=== PATIENT | female | born 1960 | race Caucasian/White ===

== ENCOUNTER 2016-10-15 21:18 | Inpatient (IN) ==
[2016-10-15] MEDS ORDERED: cloNIDine HCl 0.1 MG TABLET PO ONE (21:49)
[2016-10-15] MEDS: 0.9 % Sodium Chloride 1,000 ML IVC ONE ×2 (22:17→23:59)
[2016-10-15 22:27] LABS: Basophils % 0.2 %; Eosinophils % 0.1 %; Hematocrit 45.5 % (35.3-44.9); Hemoglobin 14.7 g/dL (11.5-15.4); Immature Platelets 3.1 % (1.1-6.1); Lymphocytes # 0.4 K/mcL (0.6-4.6); Mean Corpuscular HGB Conc 32.3 g/dL (31.6-35.5); Mean Corpuscular Hemoglobin 29.3 pg (28.0-33.3); Mean Corpuscular Volume 90.8 fL (83.0-100.0); Mean Platelet Volume 9.9 fL (9.4-12.4); Monocytes # 0.1 K/mcL (0.0-1.3); Neutrophils # 8.5 K/mcL (1.6-8.9); Platelet Count 245 K/mcL (140-400); Red Blood Count 5.01 M/mcL (3.82-4.97); Red Cell Distribution Width 13.7 % (11.5-14.5); Segmented Neutrophils % 93.7 %
[2016-10-15 22:40] LABS: BUN/Creatinine Ratio 17 (6-26); Blood Urea Nitrogen 15 mg/dL (7-20); Calcium 9.3 mg/dL (8.6-10.8); Carbon Dioxide 22 mEq/L (19-29); Chloride 101 mEq/L (98-109); Glucose 95 mg/dL (70-99); Osmolality,Calculated 283 (280-300); Potassium 3.1 mEq/L (3.5-4.5); Sodium 136 mEq/L (136-145); eGFR For African Americans > 60 (> 60); eGFR For Non-African Americans > 60 (> 60)
--- NOTE | 2016-10-15 23:19 | Emergency Department Note ---
Disposition Clinical Impression: Elevated troponin I level, Weakness, Heroin withdrawal Disposition: Admitted As Inpatient Condition: Fair Time of Disposition: 23:49 Weakness HPI - General Chief complaint: ED Weakness Stated complaint: weakness/heroin w/d Time Seen by Provider: 10/15/16 21:30 Source: patient, EMS Mode of arrival: EMS Limitations: no limitations Nursing Notes Reviewed: Yes Vital Signs Reviewed: Yes - History of Present Illness HPI Narrative: Patient is a 56-year-old female who presents to [facility] ED with chief complaint of back pain. States her symptoms have been normal ongoing for the last several days. She also is a heroin abuser who uses daily. States she did not use enough this morning. She is now having worsening back pain along with generalized weakness and nausea, diarrhea which started several hours ago. Pt Subjective Complaint: generalized weakness/fatigue Onset (ago): day(s) Location: generalized Pain Scale: 0 Improves with: none Worsens with: none Associated symptoms: Reports: denies other symptoms, fever/chills. Denies: chest pain, nausea/vomiting, shortness of breath - Related Data Home Medications Medication Instructions Recorded Confirmed Albuterol Sulfate [Proair HFA] 1 puff IH PRN PRN 10/08/14 10/08/14 Aspirin Enteric Coated [Aspirin EC] 81 mg PO DAILY 10/08/14 10/08/14 Buprenorphine HCl/Naloxone HCl 1 each SL 10/08/14 10/08/14 [Suboxone 8 mg-2 mg Sl Film] Gabapentin [Neurontin] 1,600 mg PO BID 10/08/14 10/08/14 Naproxen Sodium [Aleve] 220 mg PO BID 10/08/14 10/08/14 Previous Rx's Medication Instructions Recorded Cyclobenzaprine [Flexeril] 5 mg PO TID #14 tablet 10/08/14 Naproxen [Naprosyn] 500 mg PO BID #10 tablet 10/08/14 Amoxicillin 875 mg PO BID #14 tablet 11/20/14 Sulfamethoxazole/Trimeth DS 1 each PO BID #14 tablet 11/20/14 [Bactrim DS] Doxycycline 100 mg PO BID #14 capsule 07/28/15 Fluconazole [Diflucan] 150 mg PO ONCE #2 tablet 07/28/15 Hydrocodone/Acetaminophen [[place] 1 tab PO Q6H PRN #6 tab 07/28/15 5-325 Tablet] Clindamycin HCl [Cleocin HCl] 300 mg PO QID #40 capsule 10/23/15 Mupirocin [Bactroban Oint] 22 gm TP BID #22 tube 10/23/15 Sulfamethoxazole/Trimeth DS 1 each PO BID 10 Days 05/16/16 [Bactrim DS] cephALEXin [Keflex] 500 mg PO QID 10 Days 05/16/16 Allergies Allergy/AdvReac Type Severity Reaction Status Date / Time amlodipine [From Lotrel] Allergy Joint Pain Verified 05/16/16 16:32 benazepril [From Lotrel] Allergy Joint Pain Verified 05/16/16 16:32 All systems ED: reviewed and negative except as stated. Past Medical History - Past Medical History Attestation: Yes The following information was validated with the patient. 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 history: Reports: other - Social History Smoking Status: Current every day smoker Smokeless Tobacco Status: No Alcohol use: Reports: unknown Drug use: Reports: opiates, IV Drug Use Physical Exam - General Limitations: no limitations General appearance: alert, in no apparent distress - Head Head exam: atraumatic, normocephalic, normal inspection - Eye Eye exam: Present: normal appearance, EOMI - ENT ENT exam: normal exam, normal oropharynx, mucous membranes moist - Neck Neck exam: Present: normal inspection, full ROM, trachea midline - Chest Chest inspection: Present: normal inspection, symmetric chest wall rise - Respiratory Respiratory exam: Present: wheezes (L) - Cardiovascular Cardiovascular exam: Present: normal rhythm, tachycardia - Abdominal Exam Abdominal exam: Present: soft, Non-Tender. Absent: tenderness, distention, guarding, rebound, rigidity - Extremities Exam Extremities exam: Present: normal inspection, full ROM. Absent: tenderness, pedal edema - Back Exam Back exam: Present: normal inspection, full ROM, tenderness, paraspinal tenderness - Neurological Exam Neurological exam: Present: alert - Psychiatric Psychiatric exam: Present: normal affect, normal mood - Skin Skin exam: Present: warm, dry, intact, normal color Course Course Narrative: Patient seen and examined. Complaining of back pain as well as heroin withdrawal. Complaining of subjective fevers and chills. Her back pain is purely lateral and reproducible with palpation. I do not suspect an epidural spinal abscess. Patient has not had any recent injury to her back. We will hold off on any imaging at this time since she has had prior imaging. Due to her generalized weakness, we will get some lab work as well as a troponin and EKG. Patient does have some wheezing on the left lungs. We will get a DuoNeb treatment as well as chest x-ray. - Reevaluation(s) Reevaluation #1: Lab work shows elevated troponin at 0.05. Suspect this is likely demand ischemia from his tachycardia. However she has not had any cardiac workup here before and with her generalized weakness, cannot rule out ACS. I spoke with hospitalist who would also like some blood cultures. These have been added. Patient has been accepted for admission by hospitalist Dr. Baum. Time: 23:45 Vital Signs Temperature 99.2 F 10/15/16 21:19 Pulse Rate 108 10/15/16 21:19 Respiratory Rate 22 10/15/16 21:19 Blood Pressure 135/78 10/15/16 21:19 O2 Sat by Pulse Oximetry 96 10/15/16 21:19 Temperature 98.5 F 10/16/16 00:19 Pulse Rate 104 10/16/16 00:19 Respiratory Rate 22 10/16/16 00:19 Blood Pressure 141/81 10/16/16 00:19 O2 Sat by Pulse Oximetry 93 10/16/16 00:19 Oxygen Delivery Oxygen Delivery Room Air Weakness - Medical Records Medical records reviewed: Yes I reviewed the patient's medical records. - Lab Data Lab results reviewed: Yes I reviewed the patient's lab results. Result diagrams: 10/15/16 22:20 10/15/16 22:20 - Radiology Data Radiology results reviewed: Yes I reviewed the patient's radiology results. - EKG Data EKG attestation: Yes I reviewed and interpreted this EKG. EKG results narrative: EKG done at 2154 shows sinus tachycardia with a rate of [address] elevation. Mild ST depression in V4 through V6. Normal axis. EKG appears unchanged from prior EKG done 08/05/2012. Attestation Statement - Attestation Attestation: I, Haider Couch, examined this patient and my medical decision-making was reviewed with the GLOBAL LOGISTICS ANALYST/PA/Advanced Practice Nurse/Resident Physician. I agree with the documented findings, disposition and treatment plan as described except to the extent set forth below. 56-year-old female presents with concerns of weakness, fatigue, generalized malaise. Patient states he uses heroin IV daily. She states that she had used a smaller amount of heroin than normal today. Patient states she has had similar symptoms to her presentation today with heroin withdrawal. Patient states she is unable to tolerate her symptoms at home. Denies fever, shortness of breath, diarrhea. EKG shows sinus tachycardia with a rate of 106 without evidence of obvious STEMI or ischemia. Patient had an elevated troponin on her laboratory evaluation. She will be admitted to the hospital for further care and evaluation of her elevated troponin and generalized weakness.
[2016-10-15] MEDS ORDERED: Acetaminophen 325 MG TABLET PO ONE (23:40)
[2016-10-15] MEDS ORDERED: Ipratropium/Albuterol Neb 3 ML IH ONE (23:42)
[2016-10-16] MEDS ORDERED: Naloxone 0.4 MG/ML INJ IVP PRN (00:30)
[2016-10-16] MEDS ORDERED: *HR* Buprenorphine HCl 2 MG SUBLINGUAL TABLET SL SCH (00:30)
--- NOTE | 2016-10-16 00:41 | Internal Med History&Physical ---
Date of Encounter: 10/16/16 Time of Encounter: 00:38 Assessment and Plan (1) Lower back pain Current visit: Yes Status: Acute given hx of IVDU and hx of surgery , will order CT pelvis/L-spine with contrast to r/o infection. ESR,CRP, blood cx ordered. IVF. Hold antibiotics for now since she remains stable - pending above test for decision making Qualifiers: Chronicity: acute Back pain laterality: left Qualified Code(s): M54.42 - Lumbago with sciatica, left side (2) Heroin withdrawal Current visit: Yes Status: Acute consult social work. She wishes to be on suboxone. Will start subutex in house given active withdrawal (3) Elevated troponin I level Current visit: Yes Status: Acute suspect demand, trend Internal Medicine - H&P: HPI Chief complaint: Back pain History of present illness: Ms. Gates is a 56 year old female who is an active IVDU who presents with acute left sided lower back pain. She mentions that she has a hx of chronic back pain and s/p back surgery in the area many years ago and had been on prescriptions opiates prior. She has since transitioned to IVDU for the last 8 years. Uses approx 1 g heroin a day. Last used yesterday. Active IVDU. Reported severe, local, sharp, 10/10 pain along her left back. Associated with fever, chills - subjective. Denies bladder/bowel or red flag symptoms Past Med Surg Social Fam HX - Past Medical History Medical history: asthma, hepatitis, hypertension - Past Surgical History Surgical History: appendectomy, , other - Social History Smoking Status: Current every day smoker Smokeless Tobacco Status: No Alcohol use: unknown Drug use: opiates, IV Drug Use - Additional Family History Additional family history: HTN Internal Medicine - H&P: Meds Albuterol Sulfate [Proair HFA] 1 puff IH PRN PRN 10/08/14 [History] Aspirin Enteric Coated [Aspirin EC] 81 mg PO DAILY 10/08/14 [History] Buprenorphine HCl/Naloxone HCl [Suboxone 8 mg-2 mg Sl Film] 1 each SL 10/08/14 [ History] Cyclobenzaprine [Flexeril] 5 mg PO TID #14 tablet 10/08/14 [Rx] Gabapentin [Neurontin] 1,600 mg PO BID 10/08/14 [History] Naproxen Sodium [Aleve] 220 mg PO BID 10/08/14 [History] Naproxen [Naprosyn] 500 mg PO BID #10 tablet 10/08/14 [Rx] Amoxicillin 875 mg PO BID #14 tablet 11/20/14 [Rx] Sulfamethoxazole/Trimeth DS [Bactrim DS] 1 each PO BID #14 tablet 11/20/14 [Rx] Doxycycline 100 mg PO BID #14 capsule 07/28/15 [Rx] Fluconazole [Diflucan] 150 mg PO ONCE #2 tablet 07/28/15 [Rx] Hydrocodone/Acetaminophen [[place] 5-325 Tablet] 1 tab PO Q6H PRN #6 tab 07/28/15 [Rx] Clindamycin HCl [Cleocin HCl] 300 mg PO QID #40 capsule 10/23/15 [Rx] Mupirocin [Bactroban Oint] 22 gm TP BID #22 tube 10/23/15 [Rx] Sulfamethoxazole/Trimeth DS [Bactrim DS] 1 each PO BID 10 Days 05/16/16 [Rx] cephALEXin [Keflex] 500 mg PO QID 10 Days 05/16/16 [Rx] Allergies amlodipine [From Lotrel] Allergy (Verified 05/16/16 16:32) Joint Pain benazepril [From Lotrel] Allergy (Verified 05/16/16 16:32) Joint Pain All Systems PM: A 10-system review of systems was performed and is negative for pertinent findings except as documented above in the HPI. Review of systems: ROS 14 point review of systems reviewed as best as possible given presentation. Pertinent positive or negative as per HPI or otherwise reviewed as negative - Constitutional Vitals: Temp Pulse Resp BP Pulse Ox 98.5 F 104 22 141/81 93 10/16/16 00:19 10/16/16 00:19 10/16/16 00:19 10/16/16 00:19 10/16/16 00:19 Exam: General - AAO x 3 Psych - diaphoretic, agitated, in pain Eyes - ROCIO. Eye lids intact. No scleral icterus ENT - Oral mucosa pink, dentition intact. External ear clear/dry/intact. No thyromegaly Lymphatics - No cervical/inguinal lympadenopathy Neuro - No gross peripheral or central neuro deficits with intact CN 2-12 exam Heart - Sinus. RRR. S1 and S2 present. No added HS/murmurs appreciated. No elevated JVD appreciated. No calf swellings/erythema Lung - Adequate air entry b/l, No crackes/wheezes appreciated GI - Soft, non-tender. No hepatosplenomegaly/ascites. BS+ - No CVA/suprapubic tenderness or palpable bladder distension Skin - at least present MSK - low back lumbar and sacral back pain on palpation of left Internal Med - H&P Results - Labs CBC & Chem 7: 10/15/16 22:20 10/15/16 22:20
[2016-10-16] MEDS ORDERED: cloNIDine HCl 0.1 MG TABLET PO PRN (00:50)
[2016-10-16] MEDS: 0.9 % Sodium Chloride 1,000 ML IVC SCH ×2 (01:55→10:27)
[2016-10-16 04:20] LABS: Mean Platelet Volume 10.4 fL (9.4-12.4); Red Cell Distribution Width 13.8 % (11.5-14.5)
[2016-10-16 04:21] LABS: Hematocrit 41.7 % (35.3-44.9); Hemoglobin 13.4 g/dL (11.5-15.4); Mean Corpuscular HGB Conc 32.1 g/dL (31.6-35.5); Mean Corpuscular Volume 90.3 fL (83.0-100.0); Platelet Count 235 K/mcL (140-400); Red Blood Count 4.62 M/mcL (3.82-4.97)
[2016-10-16] MEDS: *HR* Buprenorphine HCl 2 MG SUBLINGUAL TABLET SL SCH ×2 (04:25→21:39)
[2016-10-16 04:39] LABS: Alanine Aminotransferase 20 Units/L (0-55); Albumin 3.1 g/dL (3.5-5.0); Albumin/Globulin Ratio 0.6 (1.1-2.2); Alkaline Phosphatase 125 Units/L (38-126); Aspartate Amino Transferase 33 Units/L (5-34); BUN/Creatinine Ratio 16 (6-26); Bilirubin,Total 0.7 mg/dL (0.2-1.2); Blood Urea Nitrogen 14 mg/dL (7-20); Calcium 9.2 mg/dL (8.6-10.8); Carbon Dioxide 24 mEq/L (19-29); Chloride 104 mEq/L (98-109); Globulin 5.1 g/dL (2.4-3.5); Glucose 98 mg/dL (70-99); Osmolality,Calculated 286 (280-300); Sodium 138 mEq/L (136-145); Total Protein 8.2 g/dL (6.0-8.3); eGFR For African Americans > 60 (> 60); eGFR For Non-African Americans > 60 (> 60)
[2016-10-16 04:54] LABS: C-Reactive Protein 33 mg/L (Less than 5)
[2016-10-16] MEDS: *HR* Enoxaparin 40 MG/0.4 ML SYRINGE SQ SCH (05:59)
[2016-10-16] MEDS: Ibuprofen 400 MG TABLET PO PRN ×3 (06:00→18:05)
[2016-10-16] MEDS: Potassium Chloride Elixir 20 MEQ/15 ML UDC PO SCH ×2 (10:26→15:55)
[2016-10-16] MEDS: *HR* Promethazine 25 MG/ML VIAL IVP PRN (10:49)
--- NOTE | 2016-10-16 11:32 | Event Note ---
Date of Encounter: 10/16/16 Time of Encounter: 11:32 56 year old female with h/o- HTN, COPD, IVDU, medical noncompliance was admitted with acute on chronic low back pain, radiating to her left back. Patient seen and examined at bedside; reports severe back pain, nausea and vomiting; no abdominal pain or urinary complaints, diarrhea; Awake, alert and oriented*3 Chest- S1, S2 heard. Lungs with bibasal rhonchi and coarse breath sounds B/L Back- lumbar spinal old surgical scar with a small dry scab at the proximal end ; point tenderness on upper lumbar vertebrae; no CVA Lumbar back pain- need to r/o- vertebral osteomyelitis or disciitis given her IVDU; continue pain control and supportive care; CT L-Spine and pelvis shows no evidence of infection; possible diverticulitis at the junction of descending colon and sigmoid colon. F/up blood cultures. Start IV Ciprofloxacin and Flagyl. COPD- patient noted to be having rhonchi. Start bronchodilators and supplemental O2 as needed; Opiate withdrawal- responding well to Subutex; continue the same with supportive symptomatic therapy;
[2016-10-16] MEDS: Ipratropium/Albuterol Neb 3 ML IH SCH ×4 (11:45→23:22)
[2016-10-16 12:36] LABS: Bilirubin,Urine Small (Negative); Blood,Urine Negative (Negative); Clarity,Urine Cloudy (Clear); Color,Urine Dark Yellow (Yellow); Glucose,Urine (UA) Normal (Normal); Ketones,Urine Negative (Negative); Leukocyte Esterase,Urine Small (Negative); Nitrite,Urine Negative (Negative); Protein,Urine Trace mg/dL (Neg-Trace); Specific Gravity,Urine 1.027 (1.010-1.025); Urobilinogen,Urine Normal (Normal)
[2016-10-16 12:39] LABS: Hyaline Casts,Urine Few per lpf (None-Few); RBC,Urine 0-3 per hpf (0-3)
[2016-10-16 12:52] LABS: Bacteria,Urine Few per hpf (None-Few); Mucus,Urine Many (Few); Squamous Epithelial Cell,Urine Few per lpf (None-Few)
[2016-10-16] MEDS: MetroNIDAZOLE 500 MG/100 ML 500 MG/100 ML BAG IVPB SCH (15:54)
--- NOTE | 2016-10-16 17:50 | Electrocardiograph Report ---
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
[2016-10-16] MEDS: Nicotine 21 MG PATCH.TD24 TD SCH (18:31)
[2016-10-16] MEDS: Acetaminophen 325 MG TABLET PO PRN (21:39)
[2016-10-16] MEDS: Ondansetron 4 MG/2 ML VIAL IVP PRN (21:40)
[2016-10-17] MEDS: 0.9 % Sodium Chloride 1,000 ML IVC SCH (00:24)
[2016-10-17] MEDS: MetroNIDAZOLE 500 MG/100 ML 500 MG/100 ML BAG IVPB SCH ×4 (00:26→23:53)
[2016-10-17] MEDS: Ibuprofen 400 MG TABLET PO PRN ×3 (00:26→19:51)
[2016-10-17] MEDS: Ipratropium/Albuterol Neb 3 ML IH SCH ×5 (04:46→19:52)
[2016-10-17] MEDS: *HR* Enoxaparin 40 MG/0.4 ML SYRINGE SQ SCH (05:05)
[2016-10-17] MEDS: *HR* Promethazine 25 MG/ML VIAL IVP PRN ×2 (05:05→18:21)
[2016-10-17] MEDS: Acetaminophen 325 MG TABLET PO PRN ×3 (05:05→22:39)
[2016-10-17 05:23] LABS: BUN/Creatinine Ratio 23 (6-26); Blood Urea Nitrogen 17 mg/dL (7-20); Calcium 8.5 mg/dL (8.6-10.8); Carbon Dioxide 22 mEq/L (19-29); Chloride 109 mEq/L (98-109); Glucose 81 mg/dL (70-99); Magnesium 1.9 mg/dL (1.6-2.6); Osmolality,Calculated 289 (280-300); Potassium 3.1 mEq/L (3.5-4.5); Sodium 139 mEq/L (136-145); eGFR For African Americans > 60 (> 60); eGFR For Non-African Americans > 60 (> 60)
[2016-10-17 05:32] LABS: Basophils % 0.2 %; Eosinophils # 0.1 K/mcL (0.0-0.6); Eosinophils % 0.2 %; Hematocrit 35.6 % (35.3-44.9); Immature Granulocytes % 0.5 % (0-4); Lymphocytes # 3.6 K/mcL (0.6-4.6); Mean Corpuscular HGB Conc 32.6 g/dL (31.6-35.5); Mean Corpuscular Hemoglobin 29.6 pg (28.0-33.3); Mean Corpuscular Volume 90.8 fL (83.0-100.0); Mean Platelet Volume 11.3 fL (9.4-12.4); Monocytes # 1.8 K/mcL (0.0-1.3); Monocytes % 9.1 %; Neutrophils # 14.5 K/mcL (1.6-8.9); Platelet Count 214 K/mcL (140-400); Red Blood Count 3.92 M/mcL (3.82-4.97); Red Cell Distribution Width 14.2 % (11.5-14.5)
[2016-10-17 05:34] LABS: Hemoglobin 11.6 g/dL (11.5-15.4)
[2016-10-17] MEDS: *HR* Buprenorphine HCl 2 MG SUBLINGUAL TABLET SL SCH (08:10)
[2016-10-17] MEDS: Nicotine 21 MG PATCH.TD24 TD SCH (08:22)
--- NOTE | 2016-10-17 10:05 | Internal Med Progress Note ---
Date of Encounter: 10/17/16 Time of Encounter: 10:00 - Assessment and plan (1) Lower back pain Current Visit: Yes Status: Acute Assessment and plan: Patient has acute on chronic left-sided low back pain. Uncertain etiology. CT lumbar spine showed no evidence of osteomyelitis/discitis and she is at higher risk given her IV drug use. 2 sets of initial blood cultures remain negative. Suspicion for spinal seeding is low at this time. Continue pain control with when necessary Tylenol and ibuprofen. Avoid opiates due to IV drug use. Qualifiers: Chronicity: acute Back pain laterality: left Sciatica presence: without sciatica Qualified Code(s): M54.5 - Low back pain (2) Elevated troponin I level Current Visit: Yes Status: Resolved Assessment and plan: Likely demand ischemia due to tachycardia and underlying infection. Serum troponins currently normal. No history of chest pain. (3) Diverticulitis Current Visit: Yes Status: Acute Assessment and plan: Patient presented with leukocytosis and tachycardia. Workup for infection so far negative except the finding of mild diverticulitis at the junction of descending and sigmoid colon on CT pelvis. Blood cultures negative. Continue IV ciprofloxacin and Flagyl. Supportive care. Pain control. Qualifiers: Diverticulitis site: large intestine Diverticulitis bleeding: without bleeding Diverticulitis complication: without perforation or abscess Qualified Code(s): K57.32 - Diverticulitis of large intestine without perforation or abscess without bleeding (4) Tobacco abuse Current Visit: Yes Status: Chronic Assessment and plan: Continue nicotine transdermal patch. (5) Essential hypertension Current Visit: Yes Status: Chronic Assessment and plan: Patient is non-compliant with outpatient regimen. Restart Lisinopril as her BP is noted to be high; continue to monitor closely; (6) COPD (chronic obstructive pulmonary disease) Current Visit: Yes Status: Chronic Assessment and plan: likely has undiagnosed COPD due to her smoking history. Continue bronchodilators and supplemental O2 as needed; Qualifiers: COPD type: unspecified COPD Qualified Code(s): J44.9 - Chronic obstructive pulmonary disease, unspecified (7) IVDU (intravenous drug user) Current Visit: Yes Status: Chronic Assessment and plan: No signs of withdrawal at this time. Continue supportive care with when necessary clonidine, Bentyl and Zofran. Patient has been started on Subutex, continue for now. environmental services floor tech consult. - Subjective Interval history: Feels better; reports low back pain, but improving; tolerates oral diet. No fever and improved heart rate; no abdominal pain and improved diarrhea; - Constitutional Vitals: Temp Pulse Resp BP Pulse Ox 97.8 F 67 18 145/90 96 10/17/16 07:35 10/17/16 07:35 10/17/16 07:35 10/17/16 07:35 10/17/16 07:35 General appearance: Present: A&O X 3, answers questions appropriately - Respiratory Respiratory exam: Present: CTAB (B/L coarse breath sounds, improved rhonchi). Absent: accessory muscle use, rales, rhonchi, wheezes - Cardiovascular Cardiovascular exam: Present: RRR, +S1, +S2. Absent: diastolic murmur, gallop, rubs, systolic murmur - GI/Abdominal GI/Abdominal exam: Present: normal bowel sounds, soft, no peritoneal signs. Absent: distended, tenderness - Neurological Exam Neurological exam: Present: CN II-XII intact, oriented X3, no focal deficits. Absent: pronater drift, facial droop, speech deficit Internal Medicine: Result - Labs CBC & Chem 7: 10/17/16 03:56 10/17/16 03:56 Labs: Short CBC 10/17/16 Range/Units 03:56 WBC 20.1 H (4.3-11.1) K/mcL Hgb 11.6 D (11.5-15.4) g/dL Hct 35.6 (35.3-44.9) % Plt Count 214 (140-400) K/mcL Neutrophils # 14.5 H (1.6-8.9) K/mcL BMP 10/17/16 03:56 Sodium 139 Potassium 3.1 L Chloride 109 Carbon Dioxide 22 BUN 17 Creatinine 0.73 Glucose 81 Calcium 8.5 L Cardiac Enzymes 10/16/16 10/16/16 Range/Units 10:23 16:21 Troponin I 0.03 0.00 (0-0.03) ng/mL Urine 10/16/16 Range/Units 12:00 Urine Color Dark Yellow (Yellow) Urine Clarity Cloudy A (Clear) Urine pH 6.0 (5.0-8.0) pH Units Ur Specific [place] 1.027 H (1.010-1.025) Urine Protein Trace (Neg-Trace) mg/dL Urine Glucose (UA) Normal (Normal) mg/dL - Impressions Impressions Lumbar Spine CT 10/16/16 09:20 IMPRESSION: 1. No acute process. No evidence of discitis/osteomyelitis 2. Postoperative and degenerative changes as described D/ / Arben Gardner MD / Arben Gardner MD Interpreting Provider: Arben Gardner MD Pelvis CT 10/16/16 09:20 IMPRESSION: Mild colonic diverticulosis with suspicion for acute diverticulitis near the junction of the descending and sigmoid colon. D/ / Farhan Velasco MD / Farhan Velasco MD Interpreting Provider: Farhan Velasco MD Consult Discharge Plan - Plan Referrals: NONE,PCP [Primary Care Provider] -
[2016-10-17] MEDS: Ondansetron 4 MG/2 ML VIAL IVP PRN (19:51)
[2016-10-18] MEDS: Ipratropium/Albuterol Neb 3 ML IH SCH ×7 (00:07→23:15)
[2016-10-18] MEDS: *HR* Promethazine 25 MG/ML VIAL IVP PRN ×3 (00:32→21:31)
[2016-10-18 05:00] LABS: Basophils % 0.3 %; Eosinophils # 0.1 K/mcL (0.0-0.6); Eosinophils % 0.7 %; Hematocrit 36.5 % (35.3-44.9); Hemoglobin 11.7 g/dL (11.5-15.4); Immature Granulocytes % 0.7 % (0-4); Lymphocytes # 2.9 K/mcL (0.6-4.6); Mean Corpuscular HGB Conc 32.1 g/dL (31.6-35.5); Mean Corpuscular Hemoglobin 29.5 pg (28.0-33.3); Mean Corpuscular Volume 91.9 fL (83.0-100.0); Mean Platelet Volume 10.6 fL (9.4-12.4); Monocytes # 0.8 K/mcL (0.0-1.3); Monocytes % 7.1 %; Neutrophils # 6.8 K/mcL (1.6-8.9); Red Blood Count 3.97 M/mcL (3.82-4.97); Red Cell Distribution Width 13.8 % (11.5-14.5); Segmented Neutrophils % 64.2 %
[2016-10-18 05:17] LABS: BUN/Creatinine Ratio 21 (6-26); Blood Urea Nitrogen 15 mg/dL (7-20); Calcium 8.7 mg/dL (8.6-10.8); Carbon Dioxide 20 mEq/L (19-29); Chloride 113 mEq/L (98-109); Glucose 85 mg/dL (70-99); Magnesium 1.7 mg/dL (1.6-2.6); Osmolality,Calculated 294 (280-300); Potassium 3.6 mEq/L (3.5-4.5); Sodium 142 mEq/L (136-145); eGFR For African Americans > 60 (> 60); eGFR For Non-African Americans > 60 (> 60)
[2016-10-18 05:31] LABS: Platelet Count 189 K/mcL (140-400)
[2016-10-18] MEDS: *HR* Enoxaparin 40 MG/0.4 ML SYRINGE SQ SCH (05:41)
[2016-10-18] MEDS: Ondansetron 4 MG/2 ML VIAL IVP PRN ×2 (05:41→15:39)
[2016-10-18] MEDS: Acetaminophen 325 MG TABLET PO PRN ×3 (05:45→22:48)
[2016-10-18] MEDS: Nicotine 21 MG PATCH.TD24 TD SCH (08:33)
[2016-10-18] MEDS: MetroNIDAZOLE 500 MG/100 ML 500 MG/100 ML BAG IVPB SCH ×2 (08:34→15:49)
[2016-10-18] MEDS: Ibuprofen 400 MG TABLET PO PRN ×3 (08:41→21:30)
[2016-10-18] MEDS: 0.9 % Sodium Chloride w KCl 20 MEQ/1,000 ML MLS IVC SCH (15:42)
[2016-10-18] MEDS ORDERED: CloNIDine Patch 0.3 MG PATCH (WEEKLY) TD SCH (19:00)
--- NOTE | 2016-10-18 19:00 | Internal Med Progress Note ---
Date of Encounter: 10/18/16 Time of Encounter: 18:54 - Assessment and plan (1) Heroin withdrawal Current Visit: Yes Status: Acute (2) Diverticulitis Current Visit: Yes Status: Acute Qualifiers: Diverticulitis site: large intestine Diverticulitis bleeding: without bleeding Diverticulitis complication: without perforation or abscess Qualified Code(s): K57.32 - Diverticulitis of large intestine without perforation or abscess without bleeding (3) Essential hypertension Current Visit: Yes Status: Chronic (4) Lower back pain Current Visit: Yes Status: Acute Qualifiers: Chronicity: acute Back pain laterality: left Sciatica presence: without sciatica Qualified Code(s): M54.5 - Low back pain (5) IVDU (intravenous drug user) Current Visit: Yes Status: Chronic (6) Tobacco abuse Current Visit: Yes Status: Chronic - Subjective Interval history: Ms. Gates is a 56 year old female who is an active IVDU who presents with acute left sided lower back pain. She mentions that she has a hx of chronic back pain and s/p back surgery in the area many years ago and had been on prescriptions opiates prior. She has since transitioned to IVDU for the last 8 years. Uses approx 1 g heroin a day. Last used yesterday. Active IVDU. Reported severe, local, sharp, 10/10 pain along her left back. Associated with fever, chills - subjective. Today it she is diaphoretic and has developed fine tremors. Her blood pressure is quite high. Problem list: #1 localized thoracolumbar pain patient high risk for developing osteomyelitis due to history of recent IV drug abuse with Heroin. Order MRI with contrast the right lumbar spine. Blood cultures pending. #2 sepsis question etiology/diverticulitis. Abdominal CT showed possible diverticulitis and she is on Cipro and Flagyl. White count has normalized therefore I will continue those. No diarrhea though. #3 narcotic withdrawal patient has active narcotic withdrawal. 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 Ready to quit. #5 hypertension/accelerated hypertension IV hydralazine when necessary lisinopril 5 - Constitutional Vitals: Temp Pulse Resp BP Pulse Ox 98.3 F 74 14 185/101 96 10/18/16 16:26 10/18/16 16:26 10/18/16 16:26 10/18/16 16:26 10/18/16 16:26 General appearance: Present: A&O X 3, answers questions appropriately - Head Head exam: Present: atraumatic, normocephalic - Eye Eye exam: Present: PERRL, conjuntiva pink, sclera anicteric Pupils: Present: PERRL Additional comments: Localized to the lumbar spine tenderness - Neck Neck exam general surgery: Present: supple, trachea midline. Absent: lymphadenopathy - Respiratory Respiratory exam: Present: CTAB. Absent: accessory muscle use, rales, rhonchi, wheezes - Cardiovascular Cardiovascular exam: Present: RRR, +S1, +S2. Absent: diastolic murmur, gallop, rubs, systolic murmur - GI/Abdominal GI/Abdominal exam: Present: normal bowel sounds, soft, no peritoneal signs. Absent: distended, tenderness - Extremities Exam Extremities exam: Present: warm, radial pulses palpable and symmetrical. Absent : calf tenderness, cyanotic, pedal edema - Neurological Exam Neurological exam: Present: CN II-XII intact, oriented X3, no focal deficits. Absent: pronater drift, facial droop, speech deficit Additional comments: Diaphoretic localize bilateral upper extremity tremor - Skin Skin exam: Present: dry, intact Internal Medicine: Result - Labs CBC & Chem 7: 10/18/16 04:48 10/18/16 04:48 Labs: Short CBC 10/18/16 Range/Units 04:48 WBC 10.6 (4.3-11.1) K/mcL Hgb 11.7 (11.5-15.4) g/dL Hct 36.5 (35.3-44.9) % Plt Count 189 (140-400) K/mcL Neutrophils # 6.8 (1.6-8.9) K/mcL BMP 10/18/16 04:48 Sodium 142 Potassium 3.6 Chloride 113 H Carbon Dioxide 20 BUN 15 Creatinine 0.70 Glucose 85 Calcium 8.7 Consult Discharge Plan - Plan Instructions: Chronic Obstructive Pulmonary Disease (DC), Cigarette Smoking and Your Health, 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
[2016-10-18] MEDS ORDERED: cloNIDine HCl 0.1 MG TABLET PO SCH (21:00)
[2016-10-19] MEDS: MetroNIDAZOLE 500 MG/100 ML 500 MG/100 ML BAG IVPB SCH ×2 (01:59→08:03)
[2016-10-19] MEDS: Ipratropium/Albuterol Neb 3 ML IH SCH ×6 (04:24→23:19)
[2016-10-19] MEDS: *HR* Enoxaparin 40 MG/0.4 ML SYRINGE SQ SCH (06:11)
[2016-10-19] MEDS: 0.9 % Sodium Chloride w KCl 20 MEQ/1,000 ML MLS IVC SCH ×2 (06:11→22:44)
[2016-10-19 07:12] LABS: Alanine Aminotransferase 18 Units/L (0-55); Albumin 2.9 g/dL (3.5-5.0); Albumin/Globulin Ratio 0.7 (1.1-2.2); Alkaline Phosphatase 100 Units/L (38-126); Aspartate Amino Transferase 38 Units/L (5-34); BUN/Creatinine Ratio 15 (6-26); Bilirubin,Total 0.3 mg/dL (0.2-1.2); Blood Urea Nitrogen 10 mg/dL (7-20); Calcium 8.7 mg/dL (8.6-10.8); Carbon Dioxide 24 mEq/L (19-29); Chloride 111 mEq/L (98-109); Globulin 4.3 g/dL (2.4-3.5); Glucose 82 mg/dL (70-99); Osmolality,Calculated 294 (280-300); Potassium 4.1 mEq/L (3.5-4.5); Sodium 143 mEq/L (136-145); Total Protein 7.2 g/dL (6.0-8.3); eGFR For African Americans > 60 (> 60); eGFR For Non-African Americans > 60 (> 60)
[2016-10-19] MEDS: Ibuprofen 400 MG TABLET PO PRN (08:02)
[2016-10-19] MEDS: Nicotine 21 MG PATCH.TD24 TD SCH (08:02)
[2016-10-19] MEDS: *HR* Promethazine 25 MG/ML VIAL IVP PRN ×2 (08:05→13:35)
--- NOTE | 2016-10-19 08:32 | Internal Med Progress Note ---
Date of Encounter: 10/19/16 Time of Encounter: 08:30 - Assessment and plan (1) Heroin withdrawal Current Visit: Yes Status: Acute (2) Diverticulitis Current Visit: Yes Status: Acute Qualifiers: Diverticulitis site: large intestine Diverticulitis bleeding: without bleeding Diverticulitis complication: without perforation or abscess Qualified Code(s): K57.32 - Diverticulitis of large intestine without perforation or abscess without bleeding (3) Essential hypertension Current Visit: Yes Status: Chronic (4) Lower back pain Current Visit: Yes Status: Acute Qualifiers: Chronicity: acute Back pain laterality: left Sciatica presence: without sciatica Qualified Code(s): M54.5 - Low back pain (5) IVDU (intravenous drug user) Current Visit: Yes Status: Chronic (6) Tobacco abuse Current Visit: Yes Status: Chronic - Subjective Interval history: Ms. Gates is a 56 year old female who is an active IVDU who presents with acute left sided lower back pain. She mentions that she has a hx of chronic back pain and s/p back surgery in the area many years ago and had been on prescriptions opiates prior. She has since transitioned to IVDU for the last 8 years. Uses approx 1 g heroin a day. Last used yesterday. Active IVDU. Reported severe, local, sharp, 10/10 pain along her left back. Associated with fever, chills - subjective. Today it she is diaphoretic and has developed fine tremors. Her blood pressure is quite high. Problem list: #1 localized thoracolumbar pain patient high risk for developing osteomyelitis due to history of recent IV drug abuse with Heroin. MRI LS/TS shows no bone infection/inflammation. Shows previous Laminectomy at L4-5/L5-S1 with hardware. No severe foramen narrowing. Below the level of conus there is spinal stenosis. #2 sepsis question etiology/diverticulitis. Abdominal CT showed possible diverticulitis and she is on Cipro and Flagyl. White count has normalized therefore I will continue those. No diarrhea though. #3 narcotic withdrawal patient has active narcotic withdrawal. IV fluid clonidine when necessary morphine and when necessary hydralazine she is on editing clerk #4 IV drug abuse/nicotine abuse counseling provided and social work consult/ will need rehabilitation upon discharge. Ready to quit. #5 hypertension/accelerated hypertension IV hydralazine when necessary, lisinopril 10 BID, Catapress 3 q week, Lopressor 25 twice a day added. - Constitutional Vitals: Temp Pulse Resp BP Pulse Ox 98.2 F 89 20 185/98 94 10/19/16 06:38 10/19/16 06:38 10/19/16 07:42 10/19/16 08:14 10/19/16 07:42 General appearance: Present: A&O X 3, answers questions appropriately Internal Medicine: Result - Labs CBC & Chem 7: 10/19/16 07:22 10/19/16 05:12 Labs: BMP 10/19/16 05:12 Sodium 143 Potassium 4.1 Chloride 111 H Carbon Dioxide 24 BUN 10 Creatinine 0.67 Glucose 82 Calcium 8.7 Liver Function 10/19/16 Range/Units 05:12 Total Bilirubin 0.3 (0.2-1.2) mg/dL AST 38 H (5-34) Units/L ALT 18 (0-55) Units/L Alkaline Phosphatase 100 (38-126) Units/L Albumin 2.9 L (3.5-5.0) g/dL - Impressions Impressions Thoracic Spine MRI 10/18/16 18:50 IMPRESSION: Degenerative and operative changes as detailed above. No imaging evidence of discitis-osteomyelitis or epidural abscess. D/ / Tolu Boswell MD / Tolu Boswell MD Interpreting Provider: Tolu Boswell MD Lumbar Spine MRI 10/18/16 18:51 IMPRESSION: Degenerative and operative changes as detailed above. No imaging evidence of discitis-osteomyelitis or epidural abscess. D/ / Tolu Boswell MD / Tolu Boswell MD Interpreting Provider: Tolu Boswell MD Consult Discharge Plan - Plan Instructions: Chronic Obstructive Pulmonary Disease (DC), Cigarette Smoking and Your Health, Upstream Biomanufacturing Technician (GEN) Referrals: Alfredo Iyer MD [Partnered Physician] - 11/15/16 10:00 am ([facility] # [phone])
[2016-10-19 08:47] LABS: Basophils % 0.3 %; Eosinophils # 0.1 K/mcL (0.0-0.6); Eosinophils % 1.4 %; Hematocrit 39.3 % (35.3-44.9); Hemoglobin 12.5 g/dL (11.5-15.4); Immature Granulocytes % 0.9 % (0-4); Immature Platelets 4.3 % (1.1-6.1); Lymphocytes # 2.7 K/mcL (0.6-4.6); Lymphocytes % 27.5 %; Mean Corpuscular HGB Conc 31.8 g/dL (31.6-35.5); Mean Corpuscular Hemoglobin 28.9 pg (28.0-33.3); Mean Platelet Volume 11.2 fL (9.4-12.4); Monocytes # 0.5 K/mcL (0.0-1.3); Monocytes % 5.4 %; Neutrophils # 6.3 K/mcL (1.6-8.9); Platelet Count 234 K/mcL (140-400); Red Blood Count 4.32 M/mcL (3.82-4.97); Segmented Neutrophils % 64.5 %
[2016-10-19] MEDS: *HR* Morphine 2 MG/ML SYRINGE IVP PRN ×3 (09:12→19:53)
[2016-10-19 09:44] LABS: C-Reactive Protein 19 mg/L (Less than 5)
[2016-10-19] MEDS: Acetaminophen 325 MG TABLET PO PRN ×2 (11:53→17:45)
[2016-10-19] MEDS: Ondansetron 4 MG/2 ML VIAL IVP PRN ×2 (11:58→19:53)
[2016-10-19] MEDS ORDERED: *HR* HYDROmorphone (PF) 1 MG/ML SYRINGE IVP ONE (12:40)
[2016-10-19] MEDS: metroNIDAZOLE 500 MG TABLET PO SCH ×2 (15:52→19:53)
[2016-10-19] MEDS: 0.9 % Sodium Chloride 1,000 ML IVC SCH ×2 (22:51→22:59)
[2016-10-20] MEDS: *HR* Morphine 2 MG/ML SYRINGE IVP PRN ×5 (01:06→21:45)
[2016-10-20] MEDS: Ipratropium/Albuterol Neb 3 ML IH SCH ×6 (03:11→23:07)
[2016-10-20 04:02] LABS: Basophils % 0.3 %; Eosinophils # 0.3 K/mcL (0.0-0.6); Eosinophils % 2.5 %; Hemoglobin 12.8 g/dL (11.5-15.4); Immature Granulocytes % 0.9 % (0-4); Lymphocytes # 2.9 K/mcL (0.6-4.6); Lymphocytes % 27.4 %; Mean Corpuscular HGB Conc 32.8 g/dL (31.6-35.5); Mean Corpuscular Volume 91.3 fL (83.0-100.0); Mean Platelet Volume 10.5 fL (9.4-12.4); Monocytes # 0.6 K/mcL (0.0-1.3); Monocytes % 6.1 %; Platelet Count 269 K/mcL (140-400); Red Blood Count 4.27 M/mcL (3.82-4.97); Red Cell Distribution Width 14.2 % (11.5-14.5); Segmented Neutrophils % 62.8 %
[2016-10-20 04:04] LABS: Neutrophils # 6.5 K/mcL (1.6-8.9)
[2016-10-20 04:33] LABS: Platelet Estimate Normal (Normal)
[2016-10-20] MEDS: Acetaminophen 325 MG TABLET PO PRN ×3 (05:43→17:11)
[2016-10-20] MEDS: *HR* Enoxaparin 40 MG/0.4 ML SYRINGE SQ SCH (05:44)
[2016-10-20 05:46] LABS: Alanine Aminotransferase 18 Units/L (0-55); Albumin 3.4 g/dL (3.5-5.0); Albumin/Globulin Ratio 0.7 (1.1-2.2); Alkaline Phosphatase 103 Units/L (38-126); Aspartate Amino Transferase 37 Units/L (5-34); BUN/Creatinine Ratio 11 (6-26); Bilirubin,Total 0.6 mg/dL (0.2-1.2); Blood Urea Nitrogen 8 mg/dL (7-20); C-Reactive Protein 9 mg/L (Less than 5); Calcium 9.3 mg/dL (8.6-10.8); Carbon Dioxide 22 mEq/L (19-29); Chloride 107 mEq/L (98-109); Globulin 5.1 g/dL (2.4-3.5); Glucose 96 mg/dL (70-99); Osmolality,Calculated 286 (280-300); Sodium 139 mEq/L (136-145); Total Protein 8.5 g/dL (6.0-8.3); eGFR For African Americans > 60 (> 60); eGFR For Non-African Americans > 60 (> 60)
[2016-10-20 05:47] LABS: Potassium 4.1 mEq/L (3.5-4.5)
[2016-10-20] MEDS: metroNIDAZOLE 500 MG TABLET PO SCH ×3 (09:49→21:44)
[2016-10-20] MEDS: Nicotine 21 MG PATCH.TD24 TD SCH (09:49)
[2016-10-20] MEDS: *HR* Promethazine 25 MG/ML VIAL IVP PRN ×2 (13:18→21:45)
--- NOTE | 2016-10-20 16:34 | Internal Med Progress Note ---
Date of Encounter: 10/20/16 Time of Encounter: 16:33 - Assessment and plan (1) Heroin withdrawal Current Visit: Yes Status: Acute (2) Diverticulitis Current Visit: Yes Status: Acute Qualifiers: Diverticulitis site: large intestine Diverticulitis bleeding: without bleeding Diverticulitis complication: without perforation or abscess Qualified Code(s): K57.32 - Diverticulitis of large intestine without perforation or abscess without bleeding (3) Essential hypertension Current Visit: Yes Status: Chronic (4) Lower back pain Current Visit: Yes Status: Acute Qualifiers: Chronicity: acute Back pain laterality: left Sciatica presence: without sciatica Qualified Code(s): M54.5 - Low back pain (5) IVDU (intravenous drug user) Current Visit: Yes Status: Chronic (6) Tobacco abuse Current Visit: Yes Status: Chronic - Subjective Interval history: Ms. Gates is a 56 year old female who is an active IVDU who presents with acute left sided lower back pain. She mentions that she has a hx of chronic back pain and s/p back surgery in the area many years ago and had been on prescriptions opiates prior. She has since transitioned to IVDU for the last 8 years. Uses approx 1 g heroin a day. Last used yesterday. Active IVDU. Reported severe, local, sharp, 10/10 pain along her left back. Associated with fever, chills - subjective. Today it she is diaphoretic and has developed fine tremors. Her blood pressure is quite high. Problem list: #1 localized thoracolumbar pain patient high risk for developing osteomyelitis due to history of recent IV drug abuse with Heroin. MRI LS/TS shows no bone infection/inflammation. Shows previous Laminectomy at L4-5/L5-S1 with hardware. No severe foramen narrowing. Below the level of conus there is spinal stenosis. Not complaining of pain now. #2 sepsis question etiology/diverticulitis. Abdominal CT showed possible diverticulitis and she is on Cipro and Flagyl. White count has normalized therefore I will continue those. No diarrhea though. #3 narcotic withdrawal patient has active narcotic withdrawal. IV fluid clonidine when necessary morphine and when necessary hydralazine she is on court monitor. Today is feeling much better. Seems well hydrated. Encouraged to continue IV hydration #4 IV drug abuse/nicotine abuse counseling provided and social work consult/ will need rehabilitation upon discharge. Ready to quit. #5 hypertension/accelerated hypertension IV hydralazine when necessary, increase lisinopril 20 BID, Catapress 3 q week, Lopressor 25 twice a day added. - Constitutional Vitals: Temp Pulse Resp BP Pulse Ox 98.3 F 85 16 160/89 96 10/20/16 15:08 10/20/16 15:08 10/20/16 16:03 10/20/16 15:08 10/20/16 16:03 General appearance: Present: A&O X 3, answers questions appropriately - Head Head exam: Present: atraumatic, normocephalic - Eye Eye exam: Present: PERRL, conjuntiva pink, sclera anicteric Pupils: Present: PERRL - Neck Neck exam general surgery: Present: supple, trachea midline. Absent: lymphadenopathy - Respiratory Respiratory exam: Present: CTAB. Absent: accessory muscle use, rales, rhonchi, wheezes - Cardiovascular Cardiovascular exam: Present: RRR, +S1, +S2. Absent: diastolic murmur, gallop, rubs, systolic murmur - GI/Abdominal GI/Abdominal exam: Present: normal bowel sounds, soft, no peritoneal signs. Absent: distended, tenderness - Extremities Exam Extremities exam: Present: warm, radial pulses palpable and symmetrical. Absent : calf tenderness, cyanotic, pedal edema - Neurological Exam Neurological exam: Present: CN II-XII intact, oriented X3, no focal deficits. Absent: pronater drift, facial droop, speech deficit - Skin Skin exam: Present: dry, intact Internal Medicine: Result - Labs CBC & Chem 7: 10/20/16 03:51 10/20/16 05:12 Labs: Short CBC 10/20/16 Range/Units 03:51 WBC 10.4 (4.3-11.1) K/mcL Hgb 12.8 (11.5-15.4) g/dL Hct 39.0 (35.3-44.9) % Plt Count 269 (140-400) K/mcL Neutrophils # 6.5 (1.6-8.9) K/mcL BMP 10/20/16 05:12 Sodium 139 Potassium 4.1 Chloride 107 Carbon Dioxide 22 BUN 8 Creatinine 0.73 Glucose 96 Calcium 9.3 Liver Function 10/20/16 Range/Units 05:12 Total Bilirubin 0.6 (0.2-1.2) mg/dL AST 37 H (5-34) Units/L ALT 18 (0-55) Units/L Alkaline Phosphatase 103 (38-126) Units/L Albumin 3.4 L (3.5-5.0) g/dL - Impressions Impressions Head CT 10/19/16 17:45 IMPRESSION: No acute intracranial abnormality. D/ / Petey Tilley MD / Petey Tilley MD Interpreting Provider: Petey Tilley MD Consult Discharge Plan - Plan Instructions: Chronic Obstructive Pulmonary Disease (DC), Cigarette Smoking and Your Health, Fraud Analyst (GEN) Referrals: Alfredo Iyer MD [Partnered Physician] - 11/15/16 10:00 am ([facility] office # [phone])
[2016-10-20] MEDS: Ondansetron 4 MG/2 ML VIAL IVP PRN (17:02)
[2016-10-20] MEDS: Lisinopril 20 MG TABLET PO SCH (21:44)
[2016-10-21] MEDS: Ipratropium/Albuterol Neb 3 ML IH SCH ×3 (04:02→11:02)
[2016-10-21 04:14] LABS: Basophils % 0.4 %; Eosinophils # 0.3 K/mcL (0.0-0.6); Eosinophils % 3.1 %; Hematocrit 42.3 % (35.3-44.9); Immature Granulocytes % 1.3 % (0-4); Lymphocytes # 3.8 K/mcL (0.6-4.6); Lymphocytes % 37.8 %; Mean Corpuscular HGB Conc 33.1 g/dL (31.6-35.5); Mean Corpuscular Hemoglobin 29.8 pg (28.0-33.3); Mean Platelet Volume 10.8 fL (9.4-12.4); Monocytes # 0.8 K/mcL (0.0-1.3); Monocytes % 7.9 %; Platelet Count 247 K/mcL (140-400); Red Cell Distribution Width 13.8 % (11.5-14.5); Segmented Neutrophils % 49.5 %
[2016-10-21 04:42] LABS: Alanine Aminotransferase 15 Units/L (0-55); Albumin 3.2 g/dL (3.5-5.0); Albumin/Globulin Ratio 0.6 (1.1-2.2); Alkaline Phosphatase 101 Units/L (38-126); BUN/Creatinine Ratio 17 (6-26); Bilirubin,Total 0.5 mg/dL (0.2-1.2); Blood Urea Nitrogen 13 mg/dL (7-20); C-Reactive Protein 4 mg/L (Less than 5); Calcium 8.9 mg/dL (8.6-10.8); Carbon Dioxide 19 mEq/L (19-29); Chloride 109 mEq/L (98-109); Globulin 5.3 g/dL (2.4-3.5); Glucose 97 mg/dL (70-99); Osmolality,Calculated 286 (280-300); Sodium 138 mEq/L (136-145); Total Protein 8.5 g/dL (6.0-8.3); eGFR For African Americans > 60 (> 60); eGFR For Non-African Americans > 60 (> 60)
[2016-10-21 04:52] LABS: Aspartate Amino Transferase 32 Units/L (5-34); Potassium 4.9 mEq/L (3.5-4.5)
[2016-10-21] MEDS: *HR* Enoxaparin 40 MG/0.4 ML SYRINGE SQ SCH (05:23)
[2016-10-21 08:00] VITALS: BP 151/90
[2016-10-21] MEDS: Nicotine 21 MG PATCH.TD24 TD SCH (08:18)
[2016-10-21] MEDS: Lisinopril 20 MG TABLET PO SCH (08:19)
[2016-10-21] MEDS ORDERED: hydrALAZINE 25 MG TABLET PO SCH (08:19)
[2016-10-21] MEDS: metroNIDAZOLE 500 MG TABLET PO SCH (08:19)
--- NOTE | 2016-10-21 15:46 | Discharge Summary ---
Date of Encounter: 10/21/16 Time of Encounter: 15:39 - Discharge Diagnosis (1) Heroin withdrawal Priority: Primary Status: Acute (2) Diverticulitis Priority: Primary Status: Acute Qualifiers: Diverticulitis site: large intestine Diverticulitis bleeding: without bleeding Diverticulitis complication: without perforation or abscess Qualified Code(s): K57.32 - Diverticulitis of large intestine without perforation or abscess without bleeding (3) Essential hypertension Priority: Secondary Status: Chronic (4) Lower back pain Priority: Secondary Status: Acute Qualifiers: Chronicity: acute Back pain laterality: left Sciatica presence: without sciatica Qualified Code(s): M54.5 - Low back pain (5) IVDU (intravenous drug user) Priority: Secondary Status: Chronic (6) Tobacco abuse Priority: Secondary Status: Chronic - Discharge Medications Prescriptions: Albuterol Sulfate [Albuterol Inhaler] 2 puff IH Q6HR PRN #1 PRN Reason: Dyspnea hydrALAZINE [HydrALAZINE] 50 mg PO Q12HR #60 tablet levoFLOXacin [Levaquin] 500 mg PO DAILY #7 tablet Lisinopril [Zestril] 40 mg PO DAILY #30 metroNIDAZOLE [Flagyl] 500 mg PO TID #21 tablet Home Medications: Gabapentin [Neurontin] 1,600 mg PO BID 10/16/16 [History] Albuterol Sulfate [Albuterol Inhaler] 2 puff IH Q6HR PRN #1 10/21/16 [Rx] Aspirin [Ecotrin] 81 mg PO DAILY #0 10/21/16 [Rx] Lisinopril [Zestril] 40 mg PO DAILY #30 10/21/16 [Rx] hydrALAZINE [HydrALAZINE] 50 mg PO Q12HR #60 tablet 10/21/16 [Rx] levoFLOXacin [Levaquin] 500 mg PO DAILY #7 tablet 10/21/16 [Rx] metroNIDAZOLE [Flagyl] 500 mg PO TID #21 tablet 10/21/16 [Rx] Allergies/Adverse Reactions: 3 Allergy/AdvReac Type Severity Reaction Status Date / Time amlodipine [From Lotrel] Allergy Joint Pain Verified 05/16/16 16:32 benazepril [From Lotrel] Allergy Joint Pain Verified 05/16/16 16:32 Procedures/tests Complete & Pending: Procedures Performed prior 72 hours Category Date Time Status CT head/brain wo con [CT] Routine Cat Scan 10/19/16 17:45 Completed MR lumbar spine wo/w con [MR] Routine MRI 10/18/16 18:51 Completed MR thoracic spine wo/w con [MR] Routine MRI 10/18/16 18:50 Completed Date of admission: 10/16/16 00:30 Primary care physician: PCP NONE Consults: 10/16/16 00:35 Consult to Supervisor Rides [CONS] Routine Reason for SW Consult: opiate use Discharging clinician: Santo Romo Anticipated date of discharge: 10/21/16 - Patient Status Disposition: Left Against Medical Advice Condition: Fair - Discharge Instructions Instructions: Chronic Obstructive Pulmonary Disease (DC), Cigarette Smoking and Your Health, E Learning Specialist (GEN) Follow Up With: Alfredo Iyer MD [Partnered Physician] - 11/15/16 10:00 am ([facility] office # [phone]) Hospital course: Ms. Gates is a 56 year old female who is an active IVDU who presents with acute left sided lower back pain. She mentions that she has a hx of chronic back pain and s/p back surgery in the area many years ago and had been on prescriptions opiates prior. She has since transitioned to IVDU for the last 8 years. Uses approx 1 g heroin a day. Last used yesterday. Active IVDU. Reported severe, local, sharp, 10/10 pain along her left back. Associated with fever, chills - subjective. Today it she is diaphoretic and has developed fine tremors. Her blood pressure is quite high. Problem list: #1 localized thoracolumbar pain patient high risk for developing osteomyelitis due to history of recent IV drug abuse with Heroin. MRI LS/TS shows no bone infection/inflammation. Shows previous Laminectomy at L4-5/L5-S1 with hardware. No severe foramen narrowing. Below the level of conus there is spinal stenosis. Not complaining of pain now. #2 sepsis question etiology/diverticulitis. Abdominal CT showed possible diverticulitis and she is on Cipro and Flagyl. White count has normalized therefore I will continue those. No diarrhea though. #3 narcotic withdrawal patient has active narcotic withdrawal. IV fluid clonidine when necessary morphine and when necessary hydralazine she is on environmental monitoring technician. Today is feeling much better. Seems well hydrated. Encouraged rehabilitation #4 IV drug abuse/nicotine abuse counseling provided and social work consult/ encourage rehabilitation upon discharge. . #5 hypertension/accelerated hypertension . Hydralazine 50 twice a day and lisinopril 40 daily Patient was told that she will be discharged today. As we were getting around she decided to leave and did not wait for her medication. We will send medication to her pharmacy. Nursing is advised to let patient know. She can return in case if symptoms develop or worsen. She did not give us opportunity to return and talk to her. - Time Spent with Patient Total time spent providing and/or coordinating discharge services: Greater than 30 minutes - Constitutional Vitals: Temp Pulse Resp BP Pulse Ox 98.2 F 72 16 151/90 94 10/21/16 07:58 10/21/16 07:58 10/21/16 07:58 10/21/16 07:58 10/21/16 07:58 General appearance: Present: A&O X 3, answers questions appropriately
== END 2016-10-21 12:30 | disposition left against medical advice (07) | DRG 894 ==
LOC: EMEROO 21:18 → 2NENU 21:18
PROVIDERS: ADMIT Internal Medicine Hematology & Oncology; ATTEND Internal Medicine

== ENCOUNTER 2018-12-14 13:04 | Inpatient (IN) ==
[2018-12-14] MEDS ORDERED: *HR* FentaNYL (PF) 100 MCG/2 ML VIAL IVP ONE ×2 (14:30→16:36)
[2018-12-14] MEDS ORDERED: *HR* LORazepam 2 MG/ML VIAL IVP STA ×2 (14:30→20:38)
[2018-12-14] MEDS ORDERED: 0.9 % Sodium Chloride 1,000 ML IVC ONE (14:31)
[2018-12-14] MEDS ORDERED: Ondansetron 4 MG/2 ML VIAL IVP ONE ×2 (15:02→20:01)
[2018-12-14 15:09] LABS: Basophils % 0.2 %; Eosinophils % 0.1 %; Hematocrit 33.2 % (35.3-44.9); Hemoglobin 10.7 g/dL (11.5-15.4); Immature Granulocytes % 1.2 % (0-4); Lymphocytes # 1.2 K/mcL (0.6-4.6); Lymphocytes % 6.8 %; Mean Corpuscular HGB Conc 32.2 g/dL (31.6-35.5); Mean Corpuscular Hemoglobin 28.3 pg (28.0-33.3); Mean Corpuscular Volume 87.8 fL (83.0-100.0); Mean Platelet Volume 8.8 fL (9.4-12.4); Monocytes # 1.1 K/mcL (0.0-1.3); Monocytes % 6.2 %; Neutrophils # 15.5 K/mcL (1.6-8.9); Platelet Count 336 K/mcL (140-400); Red Blood Count 3.78 M/mcL (3.82-4.97); Red Cell Distribution Width 13.3 % (11.5-14.5); Segmented Neutrophils % 85.5 %; White Blood Count 18.2 K/mcL (4.3-11.1)
[2018-12-14 15:18] LABS: Bilirubin,Urine Large (Negative); Blood,Urine Negative (Negative); Clarity,Urine Clear (Clear); Color,Urine Yellow (Yellow); Glucose,Urine (UA) Normal (Normal); Ketones,Urine Negative (Negative); Leukocyte Esterase,Urine Negative (Negative); Nitrite,Urine Negative (Negative); Protein,Urine Negative (Neg-Trace); Specific Gravity,Urine 1.015 (1.010-1.025); Urobilinogen,Urine Normal (Normal)
[2018-12-14 15:37] LABS: Alanine Aminotransferase 3 Units/L (7-52); Albumin 3.1 g/dL (3.5-5.7); Albumin/Globulin Ratio 0.7 (1.1-2.2); Alkaline Phosphatase 95 Units/L (34-104); Aspartate Amino Transferase 12 Units/L (13-39); BUN/Creatinine Ratio 17 (6-26); Bilirubin,Total 0.6 mg/dL (0.3-1.0); Blood Urea Nitrogen 12 mg/dL (6-20); C-Reactive Protein 108 mg/L (Less than 10); Calcium 8.8 mg/dL (8.6-10.3); Carbon Dioxide 25 mEq/L (23-29); Chloride 99 mEq/L (98-107); Globulin 4.7 g/dL (2.4-3.5); Glucose 79 mg/dL (70-105); Lipase 7 Units/L (11-82); Osmolality,Calculated 271 (280-300); Sodium 131 mEq/L (136-145); Total Protein 7.8 g/dL (6.4-8.9); eGFR For African Americans > 60 (> 60); eGFR For Non-African Americans > 60 (> 60)
[2018-12-14] MEDS ORDERED: cefTRIAXone 2,000 MG in Water for inj. (sterile) 20 ML IVP ONE (16:49)
[2018-12-14] MEDS ORDERED: MetroNIDAZOLE 500 MG/100 ML 500 MG/100 ML BAG IVPB ONE (16:49)
[2018-12-14] MEDS ORDERED: *HR* OxyCODONE/APAP 5/325 TABLET PO ONE (16:56)
[2018-12-14] MEDS ORDERED: *HR* HYDROmorphone (PF) 1 MG/ML SYRINGE IVP ONE ×2 (20:37→23:32)
[2018-12-15] MEDS ORDERED: Ketorolac 30 MG/ML VIAL IVP ONE (01:33)
[2018-12-15] MEDS ORDERED: *HR* Nalbuphine 10 MG/ML AMPUL IV ONE (01:39)
[2018-12-15] MEDS: Ringers Solution, Lactated 1,000 ML IVC SCH ×2 (02:09→09:01)
[2018-12-15 03:46] LABS: Amphetamine Screen,Urine Negative ng/mL (Cutoff=1000); Barbiturate Screen,Urine Negative ng/mL (Cutoff=200); Benzodiazepines Screen,Urine Negative ng/mL (Cutoff=200); Cannabinoid Screen,Urine Negative ng/mL (Cutoff = 50); Cocaine Screen,Urine Negative ng/mL (Cutoff= 300); Opiate Screen,Urine Positive ng/mL (Cutoff=300); Phencyclidine Screen,Urine Negative ng/mL (Cutoff=25)
[2018-12-15] MEDS: *HR* OxyCODONE Immed Rel 5 MG TABLET PO PRN ×3 (04:50→17:11)
[2018-12-15 05:08] LABS: Basophils % 0.3 %; Eosinophils # 0.1 K/mcL (0.0-0.6); Eosinophils % 0.5 %; Hematocrit 31.4 % (35.3-44.9); Immature Granulocytes % 0.6 % (0-4); Lymphocytes # 2.1 K/mcL (0.6-4.6); Lymphocytes % 19.3 %; Mean Corpuscular HGB Conc 31.8 g/dL (31.6-35.5); Mean Corpuscular Hemoglobin 28.2 pg (28.0-33.3); Mean Corpuscular Volume 88.7 fL (83.0-100.0); Monocytes # 1.2 K/mcL (0.0-1.3); Monocytes % 11.3 %; Neutrophils # 7.4 K/mcL (1.6-8.9); Platelet Count 321 K/mcL (140-400); Red Blood Count 3.54 M/mcL (3.82-4.97); Red Cell Distribution Width 13.3 % (11.5-14.5); White Blood Count 10.9 K/mcL (4.3-11.1)
[2018-12-15 05:16] LABS: INR 1.4; Prothrombin Time 15.6 Seconds (9.4-12.1)
[2018-12-15 05:19] LABS: Activated Partial Thrombo Time 42.1 Seconds (26.0-36.0)
[2018-12-15 05:26] LABS: BUN/Creatinine Ratio 11 (6-26); Blood Urea Nitrogen 8 mg/dL (6-20); Calcium 8.8 mg/dL (8.6-10.3); Carbon Dioxide 23 mEq/L (23-29); Chloride 105 mEq/L (98-107); Glucose 89 mg/dL (70-105); Osmolality,Calculated 274 (280-300); Potassium 3.6 mEq/L (3.5-5.1); Sodium 133 mEq/L (136-145); eGFR For African Americans > 60 (> 60); eGFR For Non-African Americans > 60 (> 60)
[2018-12-15 05:38] LABS: Platelet Estimate Normal (Normal)
[2018-12-15] MEDS: Cefepime HCl 2,000 MG in 0.9 % Sodium Chloride Mini Bag 100 ML IVPB SCH ×2 (06:15→17:11)
[2018-12-15] MEDS: *HR* Heparin 5,000 UNIT/ML VIAL SQ SCH ×3 (06:16→20:40)
[2018-12-15] MEDS: traMADol 50 MG TABLET PO PRN ×3 (06:28→20:40)
[2018-12-15] MEDS: Gabapentin 100 MG CAPSULE PO SCH ×3 (08:58→20:40)
[2018-12-15] MEDS: amLODIPine 5 MG TABLET PO SCH (08:58)
[2018-12-15] MEDS: Ketorolac 30 MG/ML VIAL IVP PRN ×3 (08:58→23:08)
[2018-12-15] MEDS ORDERED: cefTRIAXone 2,000 MG in Water for inj. (sterile) 10 ML IVPB SCH (09:00)
[2018-12-15] MEDS: Acetaminophen 325 MG TABLET PO PRN ×2 (12:30→20:40)
[2018-12-15] MEDS: FLUoxetine 20 MG CAPSULE PO SCH (20:40)
[2018-12-16] MEDS: *HR* OxyCODONE Immed Rel 5 MG TABLET PO PRN ×3 (01:00→17:32)
[2018-12-16] MEDS: Acetaminophen 325 MG TABLET PO PRN ×3 (03:27→21:13)
[2018-12-16] MEDS: traMADol 50 MG TABLET PO PRN ×2 (03:27→12:50)
[2018-12-16 05:13] LABS: Hematocrit 30.2 % (35.3-44.9); Hemoglobin 9.4 g/dL (11.5-15.4); Mean Corpuscular HGB Conc 31.1 g/dL (31.6-35.5); Mean Corpuscular Hemoglobin 27.9 pg (28.0-33.3); Mean Corpuscular Volume 89.6 fL (83.0-100.0); Mean Platelet Volume 9.3 fL (9.4-12.4); Platelet Count 314 K/mcL (140-400); Red Blood Count 3.37 M/mcL (3.82-4.97); Red Cell Distribution Width 13.5 % (11.5-14.5); White Blood Count 9.3 K/mcL (4.3-11.1)
[2018-12-16 05:19] LABS: BUN/Creatinine Ratio 12 (6-26); Blood Urea Nitrogen 9 mg/dL (6-20); Calcium 8.6 mg/dL (8.6-10.3); Carbon Dioxide 26 mEq/L (23-29); Chloride 105 mEq/L (98-107); Glucose 86 mg/dL (70-105); Osmolality,Calculated 284 (280-300); Potassium 3.8 mEq/L (3.5-5.1); Sodium 138 mEq/L (136-145); eGFR For African Americans > 60 (> 60); eGFR For Non-African Americans > 60 (> 60)
[2018-12-16] MEDS: *HR* Heparin 5,000 UNIT/ML VIAL SQ SCH ×3 (05:41→21:13)
[2018-12-16] MEDS: Ketorolac 30 MG/ML VIAL IVP PRN ×3 (05:41→21:13)
[2018-12-16] MEDS: Cefepime HCl 2,000 MG in 0.9 % Sodium Chloride Mini Bag 100 ML IVPB SCH ×2 (05:42→17:32)
[2018-12-16] MEDS: Gabapentin 100 MG CAPSULE PO SCH ×3 (09:25→21:13)
[2018-12-16] MEDS: amLODIPine 5 MG TABLET PO SCH (09:25)
[2018-12-16 17:21] LABS: Adenovirus F 40/41 PCR Not detected (Not detect); Astrovirus PCR Not detected (Not detect); C.difficile Toxin A/B Gene PCR Not detected (Not detect); Campylobacter by PCR Not detected (Not detect); Cryptosporidium by PCR Not detected (Not detect); Cyclospora cayetanensis PCR Not detected (Not detect); E. coli O157 by PCR Not detected (Not detect); Entamoeba histolytica PCR Not detected (Not detect); Enteroaggregative E.coli(EAEC) Not detected (Not detect); Enteropathogenic E.coli(EPEC) DETECTED (Not detect); Enterotoxigenic E.coli (ETEC) Not detected (Not detect); Giardia lamblia PCR Not detected (Not detect); Norovirus GI/GII PCR Not detected (Not detect); Plesiomonas shigelloides PCR Not detected (Not detect); Rotavirus A PCR Not detected (Not detect); Salmonella PCR Not detected (Not detect); Sapovirus PCR Not detected (Not detect); Shig/EnteroinvasiveE coli EIEC Not detected (Not detect); Shigalike tox-prod E coli STEC Not detected (Not detect); Vibrio PCR Not detected (Not detect); Vibrio cholerae PCR Not detected (Not detect); Yersinia enterocolitica PCR Not detected (Not detect)
[2018-12-16] MEDS: FLUoxetine 20 MG CAPSULE PO SCH (21:13)
[2018-12-17] MEDS: *HR* OxyCODONE Immed Rel 5 MG TABLET PO PRN ×4 (00:16→21:29)
[2018-12-17 04:43] LABS: Basophils % 0.3 %; Eosinophils # 0.2 K/mcL (0.0-0.6); Eosinophils % 1.5 %; Hematocrit 34.2 % (35.3-44.9); Hemoglobin 11.1 g/dL (11.5-15.4); Immature Granulocytes % 0.6 % (0-4); Lymphocytes # 3.4 K/mcL (0.6-4.6); Lymphocytes % 28.9 %; Mean Corpuscular HGB Conc 32.5 g/dL (31.6-35.5); Mean Corpuscular Hemoglobin 28.6 pg (28.0-33.3); Mean Corpuscular Volume 88.1 fL (83.0-100.0); Mean Platelet Volume 8.9 fL (9.4-12.4); Monocytes # 1.1 K/mcL (0.0-1.3); Monocytes % 9.1 %; Platelet Count 379 K/mcL (140-400); Red Blood Count 3.88 M/mcL (3.82-4.97); Red Cell Distribution Width 13.5 % (11.5-14.5); Segmented Neutrophils % 59.6 %; White Blood Count 11.7 K/mcL (4.3-11.1)
[2018-12-17 04:58] LABS: Phosphorous 3.2 mg/dL (2.7-4.5)
[2018-12-17 05:00] LABS: BUN/Creatinine Ratio 13 (6-26); Blood Urea Nitrogen 8 mg/dL (6-20); Carbon Dioxide 22 mEq/L (23-29); Chloride 104 mEq/L (98-107); Glucose 96 mg/dL (70-105); Osmolality,Calculated 278 (280-300); Potassium 3.6 mEq/L (3.5-5.1); Sodium 135 mEq/L (136-145); eGFR For African Americans > 60 (> 60); eGFR For Non-African Americans > 60 (> 60)
[2018-12-17] MEDS: Ketorolac 30 MG/ML VIAL IVP PRN (05:53)
[2018-12-17] MEDS: Acetaminophen 325 MG TABLET PO PRN (05:53)
[2018-12-17] MEDS: Cefepime HCl 2,000 MG in 0.9 % Sodium Chloride Mini Bag 100 ML IVPB SCH ×2 (06:02→17:18)
[2018-12-17] MEDS: *HR* Heparin 5,000 UNIT/ML VIAL SQ SCH ×3 (06:02→21:29)
[2018-12-17] MEDS: Gabapentin 100 MG CAPSULE PO SCH ×3 (07:51→21:30)
[2018-12-17] MEDS: amLODIPine 5 MG TABLET PO SCH (07:51)
[2018-12-17] MEDS: Azithromycin 250 MG TABLET PO SCH (07:59)
[2018-12-17] MEDS: traMADol 50 MG TABLET PO PRN ×2 (11:12→18:07)
[2018-12-17] MEDS ORDERED: Acetaminophen IV 1,000 MG/100 ML INFUS..BTL IVPB ONE (13:14)
[2018-12-17] MEDS: Nicotine 21 MG PATCH.TD24 TD SCH (15:17)
[2018-12-17] MEDS: Ondansetron 4 MG/2 ML VIAL IVP PRN (17:12)
[2018-12-17] MEDS ORDERED: Acetaminophen IV 1,000 MG/100 ML INFUS..BTL IVPB SCH (18:00)
[2018-12-17] MEDS: FLUoxetine 20 MG CAPSULE PO SCH (21:29)
[2018-12-17] MEDS: cloNIDine HCl 0.1 MG TABLET PO SCH (21:30)
[2018-12-18] MEDS: *HR* OxyCODONE Immed Rel 5 MG TABLET PO PRN ×3 (06:03→19:52)
[2018-12-18] MEDS: *HR* Heparin 5,000 UNIT/ML VIAL SQ SCH ×3 (06:04→22:30)
[2018-12-18] MEDS: Cefepime HCl 2,000 MG in 0.9 % Sodium Chloride Mini Bag 100 ML IVPB SCH ×2 (06:05→17:58)
[2018-12-18 06:06] LABS: Basophils % 0.3 %; Eosinophils # 0.1 K/mcL (0.0-0.6); Hematocrit 34.3 % (35.3-44.9); Immature Granulocytes % 0.5 % (0-4); Lymphocytes # 2.9 K/mcL (0.6-4.6); Lymphocytes % 25.8 %; Mean Corpuscular HGB Conc 32.1 g/dL (31.6-35.5); Mean Corpuscular Hemoglobin 28.2 pg (28.0-33.3); Mean Corpuscular Volume 87.9 fL (83.0-100.0); Mean Platelet Volume 9.2 fL (9.4-12.4); Monocytes % 8.7 %; Neutrophils # 7.1 K/mcL (1.6-8.9); Platelet Count 409 K/mcL (140-400); Red Cell Distribution Width 13.6 % (11.5-14.5); Segmented Neutrophils % 63.7 %; White Blood Count 11.1 K/mcL (4.3-11.1)
[2018-12-18 06:26] LABS: BUN/Creatinine Ratio 18 (6-26); Blood Urea Nitrogen 12 mg/dL (6-20); Calcium 9.4 mg/dL (8.6-10.3); Carbon Dioxide 24 mEq/L (23-29); Chloride 101 mEq/L (98-107); Glucose 94 mg/dL (70-105); Osmolality,Calculated 278 (280-300); Phosphorous 3.3 mg/dL (2.7-4.5); Potassium 4.3 mEq/L (3.5-5.1); Sodium 134 mEq/L (136-145); eGFR For African Americans > 60 (> 60); eGFR For Non-African Americans > 60 (> 60)
[2018-12-18] MEDS: Azithromycin 250 MG TABLET PO SCH (09:19)
[2018-12-18] MEDS: amLODIPine 5 MG TABLET PO SCH (09:19)
[2018-12-18] MEDS: cloNIDine HCl 0.1 MG TABLET PO SCH ×2 (09:19→19:52)
[2018-12-18] MEDS: traMADol 50 MG TABLET PO PRN (09:20)
[2018-12-18] MEDS: Gabapentin 100 MG CAPSULE PO SCH ×3 (09:20→19:52)
[2018-12-18] MEDS: Nicotine 21 MG PATCH.TD24 TD SCH (09:22)
[2018-12-18] MEDS: Ipratropium/Albuterol Neb 3 ML IH PRN (11:23)
[2018-12-18 11:49] LABS: Hepatitis B Surface Antibody > 850.00 mIU/mL
[2018-12-18 12:00] LABS: Hepatitis B Surface Antigen Nonreactive (Nonreactive)
[2018-12-18] MEDS: Ondansetron 4 MG/2 ML VIAL IVP PRN (12:26)
[2018-12-18] MEDS: FLUoxetine 20 MG CAPSULE PO SCH (19:52)
[2018-12-18] MEDS: Melatonin 3 MG TABLET PO PRN (22:30)
[2018-12-19] MEDS: *HR* OxyCODONE Immed Rel 5 MG TABLET PO PRN ×4 (05:00→22:44)
[2018-12-19] MEDS: Cefepime HCl 2,000 MG in 0.9 % Sodium Chloride Mini Bag 100 ML IVPB SCH ×2 (05:01→17:35)
[2018-12-19] MEDS: *HR* Heparin 5,000 UNIT/ML VIAL SQ SCH ×3 (05:01→20:26)
[2018-12-19 06:17] LABS: Basophils # 0.1 K/mcL (0.0-0.2); Basophils % 0.5 %; Eosinophils # 0.2 K/mcL (0.0-0.6); Eosinophils % 1.8 %; Hematocrit 34.9 % (35.3-44.9); Hemoglobin 11.1 g/dL (11.5-15.4); Immature Granulocytes % 0.7 % (0-4); Lymphocytes # 3.4 K/mcL (0.6-4.6); Lymphocytes % 31.5 %; Mean Corpuscular HGB Conc 31.8 g/dL (31.6-35.5); Mean Corpuscular Hemoglobin 28.4 pg (28.0-33.3); Mean Corpuscular Volume 89.3 fL (83.0-100.0); Mean Platelet Volume 9.5 fL (9.4-12.4); Monocytes % 9.5 %; Neutrophils # 6.1 K/mcL (1.6-8.9); Platelet Count 455 K/mcL (140-400); Red Blood Count 3.91 M/mcL (3.82-4.97); Red Cell Distribution Width 13.8 % (11.5-14.5); White Blood Count 10.8 K/mcL (4.3-11.1)
[2018-12-19 06:34] LABS: BUN/Creatinine Ratio 19 (6-26); Blood Urea Nitrogen 15 mg/dL (6-20); Calcium 9.7 mg/dL (8.6-10.3); Carbon Dioxide 27 mEq/L (23-29); Chloride 101 mEq/L (98-107); Glucose 92 mg/dL (70-105); Magnesium 2.2 mg/dL (1.6-2.6); Osmolality,Calculated 282 (280-300); Phosphorous 3.6 mg/dL (2.7-4.5); Potassium 5.3 mEq/L (3.5-5.1); Sodium 136 mEq/L (136-145); eGFR For African Americans > 60 (> 60); eGFR For Non-African Americans > 60 (> 60)
[2018-12-19] MEDS: Ondansetron 4 MG/2 ML VIAL IVP PRN ×2 (07:22→15:17)
[2018-12-19] MEDS: GuaiFENesin Liq 200 MG/10 ML UDC PO PRN ×2 (07:35→15:17)
[2018-12-19] MEDS: Nicotine 21 MG PATCH.TD24 TD SCH (07:37)
[2018-12-19] MEDS: amLODIPine 5 MG TABLET PO SCH (07:37)
[2018-12-19] MEDS: Gabapentin 100 MG CAPSULE PO SCH ×3 (07:37→20:26)
[2018-12-19] MEDS: cloNIDine HCl 0.1 MG TABLET PO SCH ×2 (07:37→20:26)
[2018-12-19] MEDS: Ipratropium/Albuterol Neb 3 ML IH PRN (14:08)
[2018-12-19 15:07] LABS: HIV-1&2 Antibody & p24 Ag Nonreactive (Nonreactive)
[2018-12-19] MEDS: traMADol 50 MG TABLET PO PRN ×2 (15:17→23:57)
[2018-12-19] MEDS: Ipratropium/Albuterol Neb 3 ML IH SCH ×3 (15:54→23:56)
[2018-12-19] MEDS ORDERED: Fluconazole 100 MG TABLET PO ONE (17:47)
[2018-12-19] MEDS: FLUoxetine 20 MG CAPSULE PO SCH (20:26)
[2018-12-19] MEDS: Melatonin 3 MG TABLET PO PRN (20:34)
[2018-12-20 03:34] LABS: Basophils # 0.1 K/mcL (0.0-0.2); Basophils % 0.4 %; Eosinophils # 0.2 K/mcL (0.0-0.6); Eosinophils % 1.6 %; Hematocrit 32.5 % (35.3-44.9); Hemoglobin 10.5 g/dL (11.5-15.4); Immature Granulocytes % 0.6 % (0-4); Lymphocytes # 3.3 K/mcL (0.6-4.6); Lymphocytes % 28.8 %; Mean Corpuscular HGB Conc 32.3 g/dL (31.6-35.5); Mean Corpuscular Volume 89.8 fL (83.0-100.0); Mean Platelet Volume 9.2 fL (9.4-12.4); Monocytes % 8.8 %; Neutrophils # 6.8 K/mcL (1.6-8.9); Platelet Count 401 K/mcL (140-400); Red Blood Count 3.62 M/mcL (3.82-4.97); Red Cell Distribution Width 13.7 % (11.5-14.5); Segmented Neutrophils % 59.8 %; White Blood Count 11.4 K/mcL (4.3-11.1)
[2018-12-20] MEDS: Ipratropium/Albuterol Neb 3 ML IH SCH ×4 (03:47→15:59)
[2018-12-20 03:48] LABS: BUN/Creatinine Ratio 25 (6-26); Blood Urea Nitrogen 17 mg/dL (6-20); Calcium 9.2 mg/dL (8.6-10.3); Carbon Dioxide 24 mEq/L (23-29); Chloride 104 mEq/L (98-107); Glucose 86 mg/dL (70-105); Magnesium 2.1 mg/dL (1.6-2.6); Osmolality,Calculated 279 (280-300); Phosphorous 3.6 mg/dL (2.7-4.5); Potassium 4.4 mEq/L (3.5-5.1); Sodium 134 mEq/L (136-145); eGFR For African Americans > 60 (> 60); eGFR For Non-African Americans > 60 (> 60)
[2018-12-20] MEDS: Cefepime HCl 2,000 MG in 0.9 % Sodium Chloride Mini Bag 100 ML IVPB SCH ×2 (05:33→17:53)
[2018-12-20] MEDS: *HR* Heparin 5,000 UNIT/ML VIAL SQ SCH ×3 (05:33→19:42)
[2018-12-20] MEDS: *HR* OxyCODONE Immed Rel 5 MG TABLET PO PRN ×4 (05:34→23:47)
[2018-12-20] MEDS ORDERED: Lisinopril 20 MG TABLET PO SCH (09:00)
[2018-12-20] MEDS: Gabapentin 100 MG CAPSULE PO SCH ×3 (09:40→19:41)
[2018-12-20] MEDS: amLODIPine 5 MG TABLET PO SCH (09:40)
[2018-12-20] MEDS: cloNIDine HCl 0.1 MG TABLET PO SCH ×2 (09:40→19:41)
[2018-12-20] MEDS: Nicotine 21 MG PATCH.TD24 TD SCH (09:41)
[2018-12-20] MEDS: traMADol 50 MG TABLET PO PRN ×2 (14:55→22:10)
[2018-12-20] MEDS ORDERED: Ipratropium/Albuterol Neb 3 ML IH PRN (16:09)
[2018-12-20] MEDS: Ondansetron 4 MG/2 ML VIAL IVP PRN (17:02)
[2018-12-20] MEDS: hydroCHLOROthiazide 25 MG TABLET PO SCH (19:41)
[2018-12-20] MEDS: FLUoxetine 20 MG CAPSULE PO SCH (19:41)
[2018-12-20] MEDS: Melatonin 3 MG TABLET PO PRN (22:10)
[2018-12-21] MEDS: *HR* Heparin 5,000 UNIT/ML VIAL SQ SCH ×3 (05:17→20:19)
[2018-12-21] MEDS: *HR* OxyCODONE Immed Rel 5 MG TABLET PO PRN ×3 (05:17→18:28)
[2018-12-21] MEDS: Cefepime HCl 2,000 MG in 0.9 % Sodium Chloride Mini Bag 100 ML IVPB SCH ×2 (05:18→18:03)
[2018-12-21 05:40] LABS: Basophils # 0.1 K/mcL (0.0-0.2); Basophils % 0.6 %; Eosinophils # 0.2 K/mcL (0.0-0.6); Eosinophils % 1.5 %; Hematocrit 34.7 % (35.3-44.9); Hemoglobin 11.4 g/dL (11.5-15.4); Immature Granulocytes % 0.8 % (0-4); Lymphocytes % 27.8 %; Mean Corpuscular HGB Conc 32.9 g/dL (31.6-35.5); Mean Corpuscular Hemoglobin 28.9 pg (28.0-33.3); Mean Corpuscular Volume 87.8 fL (83.0-100.0); Mean Platelet Volume 9.6 fL (9.4-12.4); Monocytes # 0.9 K/mcL (0.0-1.3); Monocytes % 8.3 %; Neutrophils # 6.6 K/mcL (1.6-8.9); Platelet Count 455 K/mcL (140-400); Red Blood Count 3.95 M/mcL (3.82-4.97); White Blood Count 10.7 K/mcL (4.3-11.1)
[2018-12-21 05:58] LABS: BUN/Creatinine Ratio 24 (6-26); Blood Urea Nitrogen 17 mg/dL (6-20); Calcium 10.1 mg/dL (8.6-10.3); Carbon Dioxide 26 mEq/L (23-29); Chloride 97 mEq/L (98-107); Glucose 102 mg/dL (70-105); Magnesium 2.1 mg/dL (1.6-2.6); Osmolality,Calculated 278 (280-300); Potassium 4.2 mEq/L (3.5-5.1); Sodium 133 mEq/L (136-145); eGFR For African Americans > 60 (> 60); eGFR For Non-African Americans > 60 (> 60)
[2018-12-21] MEDS: hydroCHLOROthiazide 25 MG TABLET PO SCH ×2 (09:47→20:18)
[2018-12-21] MEDS: amLODIPine 5 MG TABLET PO SCH (09:48)
[2018-12-21] MEDS: Nicotine 21 MG PATCH.TD24 TD SCH (09:48)
[2018-12-21] MEDS: Gabapentin 100 MG CAPSULE PO SCH ×3 (09:48→20:18)
[2018-12-21] MEDS: cloNIDine HCl 0.1 MG TABLET PO SCH ×2 (09:48→20:18)
[2018-12-21] MEDS: Ondansetron 4 MG/2 ML VIAL IVP PRN (09:51)
[2018-12-21] MEDS ORDERED: Lidocaine -MPF 1% 5 ML AMPUL INFILT ONE (13:13)
[2018-12-21] MEDS ORDERED: Fluconazole 100 MG TABLET PO SCH (13:15)
[2018-12-21] MEDS: FLUoxetine 20 MG CAPSULE PO SCH (20:18)
[2018-12-21] MEDS: Melatonin 3 MG TABLET PO PRN (20:19)
[2018-12-21] MEDS: traMADol 50 MG TABLET PO PRN (20:24)
[2018-12-22] MEDS: *HR* OxyCODONE Immed Rel 5 MG TABLET PO PRN ×2 (01:28→06:42)
[2018-12-22] MEDS ORDERED: 0.9 % Sodium Chloride 250 ML ONE (05:35)
[2018-12-22] MEDS: *HR* Heparin 5,000 UNIT/ML VIAL SQ SCH (06:03)
[2018-12-22] MEDS: Cefepime HCl 2,000 MG in 0.9 % Sodium Chloride Mini Bag 100 ML IVPB SCH (06:04)
[2018-12-22 06:21] LABS: Basophils # 0.1 K/mcL (0.0-0.2); Basophils % 0.5 %; Eosinophils # 0.2 K/mcL (0.0-0.6); Eosinophils % 1.6 %; Hematocrit 33.8 % (35.3-44.9); Hemoglobin 11.1 g/dL (11.5-15.4); Immature Granulocytes % 0.7 % (0-4); Lymphocytes # 3.3 K/mcL (0.6-4.6); Lymphocytes % 26.7 %; Mean Corpuscular HGB Conc 32.8 g/dL (31.6-35.5); Mean Corpuscular Hemoglobin 29.1 pg (28.0-33.3); Mean Corpuscular Volume 88.5 fL (83.0-100.0); Mean Platelet Volume 9.2 fL (9.4-12.4); Monocytes # 1.2 K/mcL (0.0-1.3); Monocytes % 10.1 %; Neutrophils # 7.4 K/mcL (1.6-8.9); Platelet Count 440 K/mcL (140-400); Red Blood Count 3.82 M/mcL (3.82-4.97); Red Cell Distribution Width 14.3 % (11.5-14.5); Segmented Neutrophils % 60.4 %; White Blood Count 12.2 K/mcL (4.3-11.1)
[2018-12-22 06:36] LABS: BUN/Creatinine Ratio 34 (6-26); Blood Urea Nitrogen 29 mg/dL (6-20); Calcium 10.2 mg/dL (8.6-10.3); Carbon Dioxide 28 mEq/L (23-29); Chloride 95 mEq/L (98-107); Glucose 98 mg/dL (70-105); Magnesium 2.1 mg/dL (1.6-2.6); Osmolality,Calculated 276 (280-300); Phosphorous 4.3 mg/dL (2.7-4.5); Potassium 4.6 mEq/L (3.5-5.1); Sodium 130 mEq/L (136-145); eGFR For African Americans > 60 (> 60); eGFR For Non-African Americans > 60 (> 60)
[2018-12-22 07:17] VITALS: BP 115/75
[2018-12-22] MEDS: cloNIDine HCl 0.1 MG TABLET PO SCH (10:00)
[2018-12-22] MEDS: Nicotine 21 MG PATCH.TD24 TD SCH (10:00)
[2018-12-22] MEDS: Gabapentin 100 MG CAPSULE PO SCH (10:00)
[2018-12-22] MEDS: hydroCHLOROthiazide 25 MG TABLET PO SCH (10:00)
[2018-12-22] MEDS: amLODIPine 5 MG TABLET PO SCH (10:01)
[2018-12-22] MEDS: traMADol 50 MG TABLET PO PRN (11:13)
[2018-12-22] MEDS ORDERED: Aminoglycoside Consult 1 EACH MC ONE (11:45)
== END 2018-12-22 11:46 | DRG 871 ==
LOC: EMEROOARM 13:04 → 2NENU 13:04 → OBSVTOIN 12-15 00:42 → SUATTDRO 12-15 00:42 → 2NENU 12-15 01:20 → 2ANU 12-16 05:26
PROVIDERS: ADMIT Internal Medicine; ATTEND Internal Medicine

== ENCOUNTER 2020-04-30 21:04 | Observation (INO) ==
[2020-04-30] MEDS ORDERED: Isovue-370 500 ML BOTTLE IVP ONE (22:03)
[2020-04-30 22:50] LABS: Basophils % 0.3 %; Eosinophils # 0.2 K/mcL (0.0-0.6); Eosinophils % 1.9 %; Hematocrit 38.8 % (35.3-44.9); Hemoglobin 12.2 g/dL (11.5-15.4); Immature Granulocytes % 0.4 % (0-4); Lymphocytes # 2.9 K/mcL (0.6-4.6); Lymphocytes % 28.3 %; Mean Corpuscular HGB Conc 31.4 g/dL (31.6-35.5); Mean Corpuscular Hemoglobin 29.5 pg (28.0-33.3); Mean Corpuscular Volume 93.9 fL (83.0-100.0); Mean Platelet Volume 11.3 fL (9.4-12.4); Monocytes # 1.1 K/mcL (0.0-1.3); Monocytes % 11.2 %; Neutrophils # 5.8 K/mcL (1.6-8.9); Platelet Count 146 K/mcL (140-400); Red Blood Count 4.13 M/mcL (3.82-4.97); Red Cell Distribution Width 14.9 % (11.5-14.5); Segmented Neutrophils % 57.9 %; White Blood Count 10.1 K/mcL (4.3-11.1)
[2020-04-30 23:17] LABS: BUN/Creatinine Ratio 31 (6-26); Blood Urea Nitrogen 24 mg/dL (6-20); Calcium 9.2 mg/dL (8.6-10.3); Carbon Dioxide 23 mEq/L (23-29); Chloride 102 mEq/L (98-107); Glucose 98 mg/dL (70-105); Magnesium 2.1 mg/dL (1.6-2.6); Osmolality,Calculated 280 (280-300); Potassium 4.3 mEq/L (3.5-5.1); Sodium 133 mEq/L (136-145); Troponin I 0.05 ng/mL (< 0.04); eGFR For African Americans > 60 (> 60); eGFR For Non-African Americans > 60 (> 60)
[2020-05-01] MEDS ORDERED: Naloxone 0.4 MG/ML INJ IVP PRN (02:02)
[2020-05-01] MEDS ORDERED: Aspirin 325 MG TABLET PO ONE (08:08)
[2020-05-01 08:43] LABS: Hematocrit 36.2 % (35.3-44.9); Hemoglobin 11.7 g/dL (11.5-15.4); Mean Corpuscular HGB Conc 32.3 g/dL (31.6-35.5); Mean Corpuscular Hemoglobin 29.1 pg (28.0-33.3); Mean Platelet Volume 10.3 fL (9.4-12.4); Platelet Count 225 K/mcL (140-400); Red Blood Count 4.02 M/mcL (3.82-4.97); White Blood Count 7.5 K/mcL (4.3-11.1)
[2020-05-01 09:17] LABS: Alanine Aminotransferase 80 Units/L (7-52); Albumin 3.5 g/dL (3.5-5.7); Albumin/Globulin Ratio 0.9 (1.1-2.2); Alkaline Phosphatase 138 Units/L (34-104); Aspartate Amino Transferase 84 Units/L (13-39); BUN/Creatinine Ratio 25 (6-26); Bilirubin,Total 0.4 mg/dL (0.3-1.0); Blood Urea Nitrogen 18 mg/dL (6-20); Calcium 8.8 mg/dL (8.6-10.3); Carbon Dioxide 28 mEq/L (23-29); Chloride 103 mEq/L (98-107); Chol/HDL Ratio 2.9 (0-4.9); Cholesterol 120 mg/dL (< 200); Globulin 3.8 g/dL (2.4-3.5); Glucose 113 mg/dL (70-105); HDL Cholesterol 42 mg/dL (40-59); LDL Cholesterol,Calculated 60 mg/dL (< 100); Osmolality,Calculated 283 (280-300); Potassium 3.8 mEq/L (3.5-5.1); Sodium 135 mEq/L (136-145); Total Protein 7.3 g/dL (6.4-8.9); Triglycerides 88 mg/dL (< 150); Troponin I 0.05 ng/mL (< 0.04); eGFR For African Americans > 60 (> 60); eGFR For Non-African Americans > 60 (> 60)
[2020-05-01 11:16] VITALS: BP 145/84
[2020-05-01 11:29] LABS: Thyroid Stimulating Hormone 0.947 mcIU/mL (0.340-5.600)
[2020-05-01 11:32] LABS: Folate 20.1 ng/mL (3.0-16.0)
[2020-05-01] MEDS ORDERED: cloNIDine HCL 0.1 MG TABLET PO SCH (21:00)
[2020-05-02] MEDS ORDERED: Aspirin 81 MG TAB.CHEW PO SCH (09:00)
[2020-05-02] MEDS ORDERED: Cyanocobalamin (B-12) 1,000 MCG TABLET PO SCH (09:00)
[2020-05-02] MEDS ORDERED: FLUoxetine 20 MG CAPSULE PO SCH (09:00)
== END 2020-05-01 17:20 | disposition home or self-care (01) ==
LOC: 2NENU 21:04 → EMEROOARM 21:04 → SUATTDRO 05-01 01:39 → 2NENU 05-01 04:17
PROVIDERS: ADMIT Internal Medicine; ATTEND Family Medicine